=== PATIENT | female | born 1955 ===

== ENCOUNTER 2018-04-08 09:54 | Day surgery (SDC) | payer SELFPAY ==
[2018-04-02 13:54] VITALS: BMI 27.3
[~2018-04-08 09:54] MED LIST: Iodixanol 320 MG/ML 100 ML BOTTLE IV ONE; Iodixanol 320 MG/ML 200 ML BOTTLE IV ONE; Lidocaine PF 2% (5 ml) Inj (For Cardiac Arrhy) ONE; Nitroglycerin 50mg in D5W 50 MG/250 ML BOTTLE IV ONE
[2018-04-08 10:08] LABS: BASO # 0.02 K/mm3 (0.0-2.0); BASO % 0.3 % (0.0-3.0); EOS # 0.1 (0.0-0.7); EOS % 0.7 % (1.5-5.0); GRAN # 3.88 (1.4-6.5); GRAN % 53.4 % (50.0-68.0); HEMOGLOBIN 12.5 g/dL (12.0-16.0); MEAN CELL VOLUME 91.2 fl (80.0-105.0); MEAN CORPUSCULAR HEMOGLOBIN 30.5 pg (25.0-35.0); MEAN CORPUSCULAR HGB CONC 33.4 g/dl (31.0-37.0); MEAN PLATELET VOLUME 9.7 fl (7.0-11.0); MONO # 0.3 (0.1-0.6); MONO % 4.6 % (1.0-6.0); RBC 4.1 10^6/uL (3.5-6.1); RED CELL DISTRIBUTION WIDTH 12.4 % (11.5-14.5); WHITE BLOOD COUNT 7.3 10^3/ul (4.5-11.0)
[2018-04-08 10:18] LABS: BLOOD UREA NITROGEN 12 mg/dL (7-21); CALCIUM 9.9 mg/dL (8.4-10.5); GFR NON-AFRICAN AMERICAN > 60
[2018-04-08 10:19] LABS: INR 1.04; PARTIAL THROMBOPLASTIN TIME 28.5 Seconds (25.1-36.5)
[2018-04-08] MEDS ORDERED: Midazolam 2 MG/2 ML VIAL ONE ×2 (13:56→14:51)
[2018-04-08] MEDS ORDERED: Iodixanol 320 MG/ML 100 ML BOTTLE IV ONE (14:27)
[2018-04-08] MEDS ORDERED: Oxycodone/Acetaminophen 5/325 mg Tab PO PRN (15:09)
[2018-04-08] MEDS ORDERED: Sodium Chloride 0.45% 1,000 ML IV SCH (15:15)
[2018-04-08 16:28] VITALS: RESP 18; TEMP 98.3
[2018-04-08 17:59] VITALS: BP 147/77; PULSE 82; O2SAT 96
--- NOTE | 2018-04-08 18:31 | VASCULAR ---
PROCEDURE: 1. Abdominal aortogram and bilateral lower extremity runoff with right selective views. 2. Left external iliac artery angioplasty and stent placement 3. Right SFA silver Hawk atherectomy and drug-eluting balloon angioplasty HISTORY: Peripheral vascular disease. Lifestyle- limiting bilateral claudication. PHYSICIAN(S): Jameson Dai M.D. TECHNIQUE: The relative risks and indications of the procedure were explained to the patient and consent obtained. The patient was hydrated prior to the procedure and the appropriate labs drawn. The patient was placed supine on the arteriogram table and the left groin prepped and draped in the usual sterile fashion. Conscious sedation and monitoring were provided throughout the procedure by a nurse. Under ultrasound guidance, the left common femoral artery was punctured with a micropuncture set. A 5 Turkish sheath was placed. A 5 Turkish flush catheters placed the abdominal aorta at the level renal arteries and a PA DSA abdominal pelvic arteriogram performed. The catheter was pulled on the aortic bifurcation and bilateral oblique DSA pelvic arteriograms performed. Overlapping bilateral lower extremity DSA arteriograms were obtained from the inguinal ligaments to the ankles. A 0.035 Lazar support wire was placed the thoracic aorta. A 6 Turkish 25 cm sheath was placed on the left. Imaging localized the proximal left external iliac artery stenosis. This was dilated with a 7 mm balloon. Next an 8 mm x 29 mm balloon expandable stent was placed in the proximal left external iliac artery. Excellent angiographic result was obtained. With a reverse curve catheter, a 0.035 support glidewire was advanced into the proximal right SFA. 7 Turkish 45 cm sheath was placed in the right common femoral artery. The short segment occlusion in the mid to distal right SFA was crossed with a 5 Turkish catheter and angled Glidewire. Exchange is made for 0.014 support wire. Heparin and nitroglycerin were given. [place] Hawk atherectomy of the right SFA was performed with an LS catheter. Approximately 8 passes were obtained. Improved but suboptimal result was obtained. Subsequently the distal right SFA was dilated with a 5 mm drug-eluting balloon. The proximal to mid right SFA was dilated with 6 mm drug-eluting balloon. An excellent angiographic result was obtained. No stents were required. Completion angiography was performed. The sheath was removed hemostasis obtained with a Perclose device. FINDINGS: There are single renal arteries bilaterally which are widely patent and normal in appearance. The nephrograms are symmetric in appearance. The infrarenal abdominal aorta is widely patent without a radiographically significant stenosis. The aortic bifurcation is widely patent. There is a focal 70 percent smooth stenosis of the proximal left external iliac artery. The common iliac arteries are small but patent. The right external iliac artery is patent. Right lower extremity: The right common femoral artery is patent. The right profunda femoral artery is hypertrophied.. There is diffuse disease of the right SFA. A 5 cm occlusion of the distal right SFA is noted. The right popliteal artery is patent and continuous. The right trifurcation is intact. There is 3 vessel tibial runoff on the right. Pedal disease is noted. Left lower extremity: Left common femoral artery is patent. The left profunda femoral artery is patent. The left superficial femoral artery is patent with mild smooth stenoses noted. The left popliteal artery is patent. Left trifurcation is intact. There is 3 vessel tibial runoff on the left. Once again is noted left pedal occlusive disease. IMPRESSION: 1.Successful left external iliac artery angioplasty and stent placement. 2. Successful right SFA silver Hawk atherectomy and drug-eluting balloon angioplasty. 3. Bilateral pedal occlusive disease.
== END 2018-04-08 19:05 | disposition home or self-care (01) ==
LOC: SDSVAS 09:54
PROVIDERS: ATTEND Radiology Vascular & Interventional Radiology
DX: I70.213 Atherosclerosis of native arteries of extremities with intermittent claudication, bilateral legs (principal); I10 Essential (primary) hypertension; I25.2 Old myocardial infarction; I25.119 Atherosclerotic heart disease of native coronary artery with unspecified angina pectoris; F17.200 Nicotine dependence, unspecified, uncomplicated; E11.9 Type 2 diabetes mellitus without complications; E78.5 Hyperlipidemia, unspecified; Z98.61 Coronary angioplasty status
CPT/HCPCS: 36415; 37221; 37225; 75625; 75716; 80048; 82948; 85025; 85610; 85730; 99152; 99153; C1714; C1725 ×4; C1760 ×2; C1769 ×5; C1876; C1887 ×2; C1894 ×2; J0360; J1644 ×2; J2250; J2405; J3010; J7030; Q9966; Q9967

== ENCOUNTER 2018-11-27 09:03 | Day surgery (SDC) | payer MEDICAID ==
[2018-11-25 17:28] VITALS: BMI 25.0
[2018-11-27 09:45] LABS: BASO # 0.02 K/mm3 (0.0-2.0); BASO % 0.2 % (0.0-3.0); EOS # 0.1 (0.0-0.7); EOS % 0.7 % (1.5-5.0); HEMOGLOBIN 13.1 g/dL (12.0-16.0); LYMPH # 2.4 (1.2-3.4); LYMPH % 30.4 % (22.0-35.0); MEAN CELL VOLUME 94.9 fl (80.0-105.0); MEAN CORPUSCULAR HGB CONC 33.7 g/dl (31.0-37.0); MEAN PLATELET VOLUME 9.2 fl (7.0-11.0); MONO # 0.3 (0.1-0.6); RBC 4.1 10^6/uL (3.5-6.1); RED CELL DISTRIBUTION WIDTH 13.5 % (11.5-14.5)
[2018-11-27 09:54] VITALS: RESP 18; O2SAT 97
[2018-11-27 09:54] LABS: BLOOD UREA NITROGEN 17 mg/dL (7-21); CALCIUM 10.1 mg/dL (8.4-10.5); GFR NON-AFRICAN AMERICAN > 60; HDL CHOLESTEROL 44 mg/dL (29-60)
[2018-11-27 10:00] LABS: INR 1.04; PARTIAL THROMBOPLASTIN TIME 37.7 Seconds (26.9-38.3); PROTHROMBIN TIME 11.7 SECONDS (9.4-12.5)
[2018-11-27 10:05] LABS: LDL CHOLESTEROL 84 mg/dL (0-129)
--- NOTE | 2018-11-27 10:23 | CARD ---
APPROVED REPORT Date of service: 11/27/2018 EKG Measurement Heart [id number] <Conclusion> Normal sinus rhythm Minimal voltage criteria for LVH, may be normal variant Borderline ECG
[2018-11-27] MEDS ORDERED: Iohexol 350mgl/ml 50 ML ONE (12:50)
[2018-11-27] MEDS ORDERED: Nitroglycerin 50mg in D5W 50 MG/250 ML BOTTLE IV ONE (12:50)
[2018-11-27] MEDS ORDERED: Lidocaine PF 2% (5 ml) Inj (For Cardiac Arrhy) ONE (12:50)
[2018-11-27] MEDS ORDERED: Iodixanol 320 MG/ML 200 ML BOTTLE IV ONE (12:50)
[2018-11-27] MEDS ORDERED: Iohexol 350 MG/100 ML VIAL ONE (12:50)
[2018-11-27] MEDS ORDERED: Verapamil 2 ML ONE (12:51)
[2018-11-27] MEDS ORDERED: Midazolam 2 MG/2 ML VIAL ONE ×2 (12:56→13:10)
[2018-11-27] MEDS ORDERED: DiphenhydrAMINE 50 mg/ml Inj ONE (13:21)
[2018-11-27] MEDS ORDERED: Labetalol 5mg/ml (4ml) ONE (13:49)
[2018-11-27] MEDS ORDERED: Sodium Chloride 0.9% 1,000 ML IV SCH (14:00)
[2018-11-27] MEDS ORDERED: Oxycodone/Acetaminophen 5/325 mg Tab PO ONE ×2 (14:01→18:00)
--- NOTE | 2018-11-27 14:50 | CP.PCM.PCO ---
Physician Communication Note - Physician Communication Note Physician Communication Note: s/p PTCA/Baldo of pRCA with 3.5x23 xience BALDO
[2018-11-27] MEDS ORDERED: Dextrose 50% SYRINGE Inj (50 ml) IV PRN (15:51)
[2018-11-27] MEDS ORDERED: Insulin Reg-LOW-Coverage SC SCH (16:30)
[2018-11-27 19:28] VITALS: BP 113/75; PULSE 86; TEMP 98.5
--- NOTE | 2018-11-27 22:44 | CARDCATH ---
PROCEDURE DATE: 11/27/2018 INDICATIONS: Ms. Jazmin Prieto is a 63-year-old female with past medical history significant for coronary artery disease, status post stenting of RCA in the remote past, severe peripheral vascular occlusive disease status post multiple revascularizations, who was referred to evaluation of atypical chest pain, underwent a nuclear stress test which was suggestive of ischemia in the inferior wall. She was therefore brought to the cathode maker for further evaluation and treatment of unstable angina with an abnormal nuclear stress test. PROCEDURE PERFORMED: Left heart catheterization with selective left and right coronary angiogram via 6-[place] left radial arterial access. The PTCA stenting of proximal RCA with deployment of 3.5 x 18 mm Xience drug-eluting stent, degeneration from 80% down to 0% ZACH-3 flow. Mynx closure device for hemostasis. TECHNIQUES OF PROCEDURE: After obtaining informed consent, the patient was brought to the cardiac cath suite in post-absorptive and non-sedated state. The patient was prepped and draped in the usual sterile fashion. A 2% lidocaine was used for infiltration of anesthesia. Using modified Seldinger technique attempt was made toward the radial artery, but it was , a 6-[place] right femoral arterial access was obtained. Over exchange length J-wire, a JR4 diagnostic catheter was used to engage the right coronary system. Angiograms were obtained in different orthogonal views. Subsequently, over an exchange length J-wire, a JR4 catheter and a JL4 catheter were used and angiograms subsequently of the left coronary system were obtained in left and right SALEH views. Subsequently a pigtail catheter was advanced into the LV and LV grams were obtained and pullback gradients were calculated. Left ventricular end-diastolic pressure was 18 mmHg, ejection fraction was normal 55% to 60% with no valve motion abnormalities seen. CORONARY ANATOMY: The left main is a large-sized vessel, it bifurcates into a LAD and left circumflex coronary artery. The LAD is a large-sized vessel, free of any obstructive disease giving off two medium sized diagonal branches. The LAD has a nonobstructive 40% stenosis. The left circumflex runs in the AV groove. This bifurcates further into a small branch in the AV groove and gives off a small-sized obtuse marginal 1 that is free of any obstructive disease. The RCA is a large-sized vessel that has a proximal segment 85% stenosis with RCA stent is patent. Right PDA and PLV patent with no obstructive disease. TECHNIQUES OF INTERVENTION: After reviewing the above angiographic findings, we decided to proceed with intervention of the proximal RCA secondary to ischemic symptoms along with abnormal perfusion anterior wall. A JR4 guiding catheter was used to engage the right coronary system. Subsequently, a [place] wire was used across the lesion to the distal PDA. The lesion was predilated with a 2.5 x 30 [place] balloon subsequently exchanged with a 3.5 x 33 mm Xience drug-eluting stent. Final angiogram was done, which showed lesion reduction was down to 0% and ZACH-3 flow. IMPRESSION: Successful revascularization of proximal right coronary artery with deployment of 3.5 x 33 mm Pedro drug-eluting stent. RECOMMENDATIONS: Continue the patient on dual antiplatelet therapy. Continue guideline-directed therapy for CAD including beta-blockers, ARB's and statins. The patient can be discharged home in 6 hours and follow up with Dr. Rodríguez in two weeks time. Sim Rodríguez MD
== END 2018-11-27 22:47 | disposition home or self-care (01) ==
LOC: CATH 09:03 → 2RSO 14:14 → CATH 22:47
PROVIDERS: ATTEND Internal Medicine Interventional Cardiology
DX: I25.110 Atherosclerotic heart disease of native coronary artery with unstable angina pectoris (principal); I73.9 Peripheral vascular disease, unspecified; Z95.5 Presence of coronary angioplasty implant and graft
CPT/HCPCS: 36415; 80048; 80061; 82948; 83036; 85025; 85175; 85610; 85730; 86850; 86900; 93005; 93458; 99152; 99153; C1725 ×2; C1760; C1769 ×2; C1874; C1887; C1894; C9600; J0360; J1200; J1644 ×2; J2250; J3010; J7030; Q9966; Q9967 ×2